=== PATIENT | male | born 1940 | race Caucasian/White ===

== ENCOUNTER → 2017-03-24 | Outpatient (CLI) | payer OTHER, BC ==
[~2017-03-24] MED LIST: GADOBUTROL 10 ML VIAL IVP ONE
[2017-03-24 10:47] LABS: CREATININE 0.9 mg/dL (0.7-1.3); GLOMERULAR FILTRATION RATE > 60
== END ==
LOC: FIMAGING 09:45
PROVIDERS: ATTEND Otolaryngology
DX: C69.90 Malignant neoplasm of unspecified site of unspecified eye (principal); C76.0 Malignant neoplasm of head, face and neck
CPT/HCPCS: 70543; A9585

== ENCOUNTER → 2017-10-23 | Outpatient (CLI) | payer OTHER, BC | LOC: FIMAGING 06:44 | PROVIDERS: ATTEND Otolaryngology | DX: Z85.840 Personal history of malignant neoplasm of eye (principal); Z85.828 Personal history of other malignant neoplasm of skin | CPT/HCPCS: 70543; A9585 ==

== ENCOUNTER → 2018-11-02 | Outpatient (CLI) | payer OTHER, BC | LOC: FIMAGING 14:22 | PROVIDERS: ATTEND Internal Medicine Endocrinology, Diabetes & Metabolism | DX: E04.2 Nontoxic multinodular goiter (principal) ==

== ENCOUNTER → 2018-11-09 | Outpatient (CLI) | payer OTHER, BC | LOC: FIMAGING 14:27 | PROVIDERS: ATTEND Otolaryngology | DX: M51.34 Other intervertebral disc degeneration, thoracic region (principal); M48.54XA Collapsed vertebra, not elsewhere classified, thoracic region, initial encounter for fracture; Z85.840 Personal history of malignant neoplasm of eye; Z85.828 Personal history of other malignant neoplasm of skin | CPT/HCPCS: 72157; A9585; 82565-PO ==

== ENCOUNTER → 2019-04-25 | Outpatient (CLI) | payer OTHER, BC | LOC: FIMAGING 11:20 ==